=== PATIENT | male | born 1955 | race Caucasian/White ===

== ENCOUNTER 2024-01-12 07:56 | Outpatient (CLI) | payer MEDICARE, BC | END 2024-01-12 07:57 | disposition home or self-care (01) | LOC: NM 07:56 | PROVIDERS: ATTEND Psychiatry & Neurology Neurology | DX: G20.C Parkinsonism, unspecified (principal); R26.9 Unspecified abnormalities of gait and mobility | CPT/HCPCS: 78803; A9584 ×2 ==